=== PATIENT | female | born 1955 | race Caucasian/White ===

== ENCOUNTER → 2020-05-02 08:36 | Outpatient (CLI) | payer OTHER, SELFPAY ==
[2020-05-02 11:27] LABS: COVID19 -Nasal RAPID Negative (Negative)
== END ==
PROVIDERS: Visit Provider Nurse Practitioner
DX: Z20.822 Contact with and (suspected) exposure to COVID-19 (principal)
CPT/HCPCS: 87635

== ENCOUNTER 2020-05-04 06:20 | Day surgery (SDC) | payer OTHER, SELFPAY ==
--- NOTE | 2020-05-04 | PATH_ITS ---
[facility] Accession Number: [id number] . 01 Material submitted: . body - RIGHT THIRD INTERSPACE NEUROMA . 02 Diagnosis: Right Third Interspace Neuroma, Excision: Consistent with neuroma. No evidence of malignancy. MRV 05/07/2020 1259 Local . 02 Electronically signed: . Kun Proctor MD, PhD, Pathologist NPI- [id number] . 01 Gross description: . Received in formalin, labeled right third interspace neuroma, are three pieces of hawk, fibrous tissue measuring 3.4 x 0.3 x 0.2 cm to 0.5 x 0.3 x 0.2 cm. The larger piece is inked and entirely submitted in cassette A1, to be further sectioned at time of embedding. The two smaller pieces are inked, one blue and one green, and entirely submitted in cassette A2, to be further sectioned at time of embedding. ([id number]) /FRR 05/05/2020 1603 Local . 02 Pathologist provided ICD-10: G57.61 . 02 CPT . 957159 Performed at: 01 [facility] [address] [facility] [place], [place], [place] [id number] MD Parrish Gibbs MD Phone: [phone] Performed at: 02 [facility] [address] [place], [place] [id number] MD Giovana Rothman MD Phone: [phone]
[2020-05-04 06:50] VITALS: BP 133/80; PULSE 70; RESP 16; TEMP 36.6; O2SAT 98; BMI 31.6
[2020-05-04] MEDS: LACTATED RINGERS 1,000 ML 100 ML IV (06:56)
--- NOTE | 2020-05-04 07:33 | PM.PREOP ---
Pre-operative Note COVID-19 COVID-19 status: Negative Interval Note History & Physical reviewed/Exam performed by Physician: Yes Changes to H&P: No
--- NOTE | 2020-05-04 07:34 | P.OP_ITS ---
Operative Date/Time/Diagnoses Date of procedure: 05/04/20 Time of procedure: 07:34 Pre-op diagnosis: Right third interspace neuroma Post-op diagnosis: same Procedure & Clinicians Procedure: Right third neuroma excision Same procedure as scheduled: Yes Indications: Painful neuroma right foot. Conservative efforts failed to alleviate her pain and she wished to have surgical intervention at this time. Surgeon: Rafia Joseph Click Yes if Unassisted: Yes Anesthesia Type: MAC +/- and Sedation Operative Notes Closure Type: primary Specimen(s): other (Right third interspace neuroma (two portions)) Estimated Blood Loss (mL): 15 Blood products transfused: none Procedure in detail: The patient was brought to the operating room and placed on the operating table in the supine position tourniquet was placed about the right ankle. Well padded appropriately aligned. After mild IV sedation, local anesth esia was obtained to the right foot in the surgical area, and the foot and ankle were prepped and draped in the usual aseptic manner. The tourniquet was inflated. After check of anesthesia, an incision was made over the dorsal 3nd interspace of the right foot. The incision was deepened through subcutaneous tissues, being careful to identify and retract all vital neural and vascular structures. All bleeders were cauterized and ligated as necessary. The deep transverse intermetatarsal ligament was cleanly resected and this allowed visualization of the underlying interspace. After being careful to identify a tendinous and ligamentous structures as well as arterial, I was able to note the white shiny tissue of the nerve. It was not significantly enlarged but upon direct manipulation there was a response of reflexive tenderness. The nerve was cleanly resected at its most proximal aspect allowing it to retract into the musculature and the 2 distal locations as it fed into the digit s. The area was irrigated with copious amounts of normal sterile saline. I saw a second component that appeared to be a possible branch off it and allowed the tourniquet to come down to verify it was nerve and not vascular. A prompt hyperemic response was seen to the foot. It did not enlarge and continued to appear neural, so was also resected. The specimens were passed from the table and sent to pathology for identification. The interspace was verified to show no additional nerve tissue and 4-0 Vicryl was used to repair subcutaneous tissues. Skin closure performed using 4-0 nylon. The area was dressed with a lightly compressive sterile dressing including Adaptic, 4x4s conform and Coban and stockinette with post op shoe. She was transferred to the PACU with vital signs stable and vascular status intact. Complications: none Post-operative Condition: stable Disposition: PACU Plan for aftercare: Following a period of postoperative monitoring, the patient be discharged home on written and oral postoperative instructions including keeping the dressing dry and intact, avoiding significant ambulation on the foot, icing behind the knee of the operative foot and elevating the foot when seated at home. DVT prevention techniques have been reviewed. For the 1st postoperative visit the dressing will be changed and close to the 3rd postoperative week we will likely remove the sutures.
[2020-05-04] MEDS: CLINDAMYCIN 600 MG/50 ML PIGGYBACK 50 MG IV (07:45)
--- NOTE | 2020-05-04 08:10 | SUR.OPER ---
Supine on padded OR bed, head on pillow, arms secured on padded arm boards at <90 degrees abduction, legs uncrossed, safety belt at torso, tape over blanket over left lower leg. Right leg in control of the surgeon.
[2020-05-04] MEDS: LIDOCAINE 2% INJ MDV 20 ML INJ (08:17)
[2020-05-04] MEDS: BUPIVACAINE 0.5% (PF) VIAL 30 ML INJ (08:17)
[2020-05-04] MEDS: DEXAMETHASONE 10 MG/ML VIAL IV (08:57)
[2020-05-04 09:25] VITALS: BP 138/82; PULSE 62; RESP 11; O2SAT 100
[2020-05-04 09:26] VITALS: BP 130/80; PULSE 64; RESP 14; TEMP 36.7; O2SAT 98
[2020-05-04 09:30] VITALS: BP 137/72; PULSE 63; RESP 13; O2SAT 100
[2020-05-04] MEDS: HYDROCODONE/ACET 5/325 TABLET 1 TAB PO (09:31)
[2020-05-04] MEDS: ONDANSETRON 4 MG/2 ML INJ IV (09:31)
[2020-05-04 09:35] VITALS: BP 132/85; PULSE 65; RESP 11; O2SAT 100
== END 2020-05-04 09:49 | disposition home or self-care (01) ==
PROVIDERS: PCP Family Medicine; Referring Provider Family Medicine; Visit Provider Podiatrist
PROC: (CPT 64782; principal; 2020-05-04 07:45)
DX: G57.61 Lesion of plantar nerve, right lower limb (principal); I10 Essential (primary) hypertension
CPT/HCPCS: 28080 ×2; J1100; J2250; J2405; J3010